=== PATIENT | female | born 1940 | race Caucasian/White ===

== ENCOUNTER → 2023-11-20 10:16 | Outpatient (REF) | payer MEDICARE, OTHER, SELFPAY | LOC: HWWDC 10:16 | PROVIDERS: ATTENDING PHYSICIAN Family Medicine | DX: Z12.31 Encounter for screening mammogram for malignant neoplasm of breast (principal) | CPT/HCPCS: 77063; 77067 ==

== ENCOUNTER → 2024-11-08 06:32 | Outpatient (REF) | payer MEDICARE, OTHER, SELFPAY ==
[2024-11-08 09:01] LABS: Urine Albumin 1+ (Neg - Trace); Urine Bilirubin Negative (Negative); Urine Character Clear (Clear); Urine Color Yellow; Urine Glucose Negative (Negative); Urine Ketone Negative (Negative); Urine Leukocyte 3+ (Negative); Urine Nitrite Negative (Negative); Urine Occult Blood 4+ (Negative); Urine Urobilinogen Negative (Neg - 1+)
[2024-11-08 09:07] LABS: Hematocrit 39.5 % (37.0-47.0); Hemoglobin 12.8 g/dL (12.0-16.0); Mean Corp Hgb Conc. 32.4 g/dL (33.0-37.0); Mean Corpuscular Hgb 31.3 pg (27.0-31.0); Mean Corpuscular Volume 96.6 fL (81.0-99.0); Mean Platelet Volume 9.9 fL (7.4-10.4); Platelet Count 282 10^3/uL (130-400); Red Blood Cell Count 4.09 10^6/uL (4.20-5.40); Red Cell Dist. Width 13.8 % (11.5-14.5); White Blood Cell Count 8.9 10^3/uL (4.8-10.8)
[2024-11-08 09:09] LABS: Urine Bacteria Few (Negative); Urine Red Blood Cell 0-2 /HPF (0-2); Urine Squamous Cell >30 /LPF (Few); Urine White Cell 30-40 /HPF (0-5)
[2024-11-08 09:34] LABS: Glycohemoglobin (HgbA1c) 5.2 % (4.0-5.6)
[2024-11-08 09:56] LABS: Absolute Neutrophils -Man Diff 2.1 10^3/uL (1.4-6.5); Anisocytosis Slight; Atypical Lymphocytes 8 %; Band Neutrophils 0 % (0-3); Eosinophils 3 % (0-6); Hypochromasia 1+; Lymphocytes 63 % (20-51); Monocytes 2 % (2-9); Normal RBC Morphology No; Platelets Checked Yes; Segmented Neutrophils 24 % (42-75)
[2024-11-08 09:57] LABS: Ovalocytes FEW; Polychromasia Slight; Total Cells Counted 100
[2024-11-08 10:17] LABS: ALT (SGPT) 16 U/L (0-35); AST (SGOT) 25 U/L (14-36); Albumin 3.9 g/dl (3.5-5.0); Alkaline Phosphatase 54 U/L (38-126); Blood Urea Nitrogen 17 mg/dl (7-17); Calcium 9.5 mg/dl (8.4-10.2); Carbon Dioxide 31 mmol/L (22-30); Chloride 101 mmol/L (98-107); Glucose 90 mg/dl (70-99); HDL Cholesterol 74 mg/dl; LDL Cholesterol, Calculated 140 mg/dl; Sodium 137 mmol/L (135-145); Total Cholesterol 232 mg/dl (50-199); Total Protein 6.2 g/dl (6.3-8.2); Triglyceride 91 mg/dl (10-149); Very Low Density Lipoprotein 18 mg/dl (0-30); eGFR > 60.00
[2024-11-08 10:33] LABS: Vitamin D, 25-OH*** 53.1 ng/mL (30-80)
[2024-11-08 10:47] LABS: TSH 3.14 uIU/ml (0.47-4.68)
[2024-11-08 11:07] LABS: Microalbumin, Random Urine 2.6 mg/dl (0.6-1.7)
== END ==
LOC: HWLAB 06:32
PROVIDERS: ATTENDING PHYSICIAN Internal Medicine Endocrinology, Diabetes & Metabolism; FAMILY PHYSICIAN Family Medicine
DX: E03.9 Hypothyroidism, unspecified (principal); I10 Essential (primary) hypertension; Z13.0 Encounter for screening for diseases of the blood and blood-forming organs and certain disorders involving the immune mechanism; E78.00 Pure hypercholesterolemia, unspecified; Z13.228 Encounter for screening for other metabolic disorders; M85.80 Other specified disorders of bone density and structure, unspecified site; E06.3 Autoimmune thyroiditis; D62 Acute posthemorrhagic anemia
CPT/HCPCS: 36415; 80053; 80061; 81003; 81015; 82043; 82306; 82570; 83036; 84439; 84443; 85025

== ENCOUNTER → 2024-12-01 08:18 | Outpatient (REF) | payer MEDICARE, OTHER, SELFPAY | LOC: HWWDC 08:18 | PROVIDERS: ATTENDING PHYSICIAN Family Medicine | DX: M85.80 Other specified disorders of bone density and structure, unspecified site (principal); Z12.31 Encounter for screening mammogram for malignant neoplasm of breast; M85.89 Other specified disorders of bone density and structure, multiple sites | CPT/HCPCS: 77063; 77067; 77080 ==

== ENCOUNTER 2025-01-06 08:21 | Day surgery (SDC) | payer MEDICARE, OTHER, SELFPAY ==
--- NOTE | 2025-01-06 11:43 | ITS.CL.CARDI ---
Installation Specialist - Cardioversion
Cardioversion
Procedure Report:
Date of Procedure: 01/06/25
Procedure: Cardioversion
Indication: Symptomatic atrial fibrillation
Performing Physician: Jose mariano MD
Technique: The patient was brought to the holding area. Signed informed consent was obtained. A time out was called and performed. The patient was anesthetized by the anesthesia service. Anticoagulation status was reviewed and appropriate. R2 pads
were placed anteriorly and posteriorly. A 200 J synchronized biphasic shock restored normal sinus rhythm without significant bradycardia. There were no complications.
Conclusion: Uncomplicated cardioversion from atrial fibrillation to sinus rhythm.
Recommendation: Routine post cardioversion care. Continue ocean transportation intermediary anticoagulation.
== END 2025-01-06 11:41 | disposition home or self-care (01) ==
LOC: CATH 08:21
PROVIDERS: ATTENDING PHYSICIAN Internal Medicine Cardiovascular Disease; FAMILY PHYSICIAN Family Medicine; OTHER PHYSICIAN Internal Medicine Cardiovascular Disease
DX: I48.91 Unspecified atrial fibrillation (principal); Z79.01 Long term (current) use of anticoagulants
CPT/HCPCS: 92960; 93005

== ENCOUNTER → 2025-01-09 13:48 | Outpatient (REF) | payer MEDICARE, OTHER, SELFPAY | LOC: HWRCS 13:48 | PROVIDERS: ATTENDING PHYSICIAN Internal Medicine Cardiovascular Disease; FAMILY PHYSICIAN Family Medicine | DX: I48.19 Other persistent atrial fibrillation (principal) | CPT/HCPCS: 93306 ==

== ENCOUNTER → 2025-03-16 07:50 | Outpatient (REF) | payer MEDICARE, OTHER, SELFPAY ==
[2025-03-16 09:53] LABS: Blood Urea Nitrogen 19 mg/dl (7-17); Calcium 9.5 mg/dl (8.4-10.2); Carbon Dioxide 29 mmol/L (22-30); Chloride 106 mmol/L (98-107); Glucose 87 mg/dl (70-99); Potassium 4.1 mmol/L (3.5-5.1); Sodium 140 mmol/L (135-145); Urine Albumin 1+ (Neg - Trace); Urine Bilirubin Negative (Negative); Urine Character Clear (Clear); Urine Color Yellow; Urine Glucose Negative (Negative); Urine Ketone Negative (Negative); Urine Leukocyte 3+ (Negative); Urine Nitrite Positive (Negative); Urine Occult Blood 4+ (Negative); Urine Specific Gravity 1.015 (<1.030); Urine Urobilinogen Negative (Neg - 1+); Urine pH 6.5 (5.0-9.0); eGFR > 60.00
[2025-03-16 10:29] LABS: Microalbumin, Random Urine 6.9 mg/dl (0.6-1.7)
[2025-03-16 10:36] LABS: Microalbumin/creatinine Ratio 76.8 mg/g
[2025-03-16 10:41] LABS: Urine Squamous Cell >30 /LPF (Few)
[2025-03-16 10:45] LABS: Urine Bacteria Many (Negative); Urine White Cell 50-60 /HPF (0-5)
== END ==
LOC: HWLAB 07:50
PROVIDERS: ATTENDING PHYSICIAN Family Medicine
DX: R80.9 Proteinuria, unspecified (principal)
CPT/HCPCS: 36415; 80048; 81003; 81015; 82043; 82570

== ENCOUNTER → 2025-03-20 07:13 | Outpatient (REF) | payer MEDICARE, OTHER, SELFPAY ==
[2025-03-20 10:02] LABS: Urine Albumin 2+ (Neg - Trace); Urine Bilirubin Negative (Negative); Urine Character Slightly Cloudy (Clear); Urine Color Yellow; Urine Glucose Negative (Negative); Urine Ketone Negative (Negative); Urine Leukocyte 3+ (Negative); Urine Nitrite Negative (Negative); Urine Occult Blood 4+ (Negative); Urine Urobilinogen Negative (Neg - 1+)
[2025-03-20 10:45] LABS: Urine Amorphous Seen
[2025-03-20 11:37] LABS: Urine Red Blood Cell 21-25 /HPF (0-2)
[2025-03-20 11:38] LABS: Urine White Cell >100 /HPF (0-5)
[2025-03-20 11:39] LABS: Urine Bacteria Many (Negative)
== END ==
LOC: HWLAB 07:13
PROVIDERS: ATTENDING PHYSICIAN Family Medicine
DX: R82.90 Unspecified abnormal findings in urine (principal)
CPT/HCPCS: 81003; 81015; 87077; 87086; 87186

== ENCOUNTER 2025-03-23 06:50 | Day surgery (SDC) | payer MEDICARE, OTHER, SELFPAY | END 2025-03-23 07:35 | LOC: CATH 06:50 | PROVIDERS: ATTENDING PHYSICIAN Internal Medicine Cardiovascular Disease; FAMILY PHYSICIAN Family Medicine; OTHER PHYSICIAN Internal Medicine Cardiovascular Disease | DX: I48.19 Other persistent atrial fibrillation (principal); Z53.09 Procedure and treatment not carried out because of other contraindication; I10 Essential (primary) hypertension; E78.00 Pure hypercholesterolemia, unspecified; E03.9 Hypothyroidism, unspecified; Z85.820 Personal history of malignant melanoma of skin; Z79.01 Long term (current) use of anticoagulants | CPT/HCPCS: 93005 ==

== ENCOUNTER → 2025-05-04 12:33 | Outpatient (REF) | payer MEDICARE, OTHER, SELFPAY ==
[2025-05-04 13:06] LABS: Hematocrit 36.6 % (37.0-47.0); Hemoglobin 12.3 g/dL (12.0-16.0); Mean Corp Hgb Conc. 33.6 g/dL (33.0-37.0); Mean Corpuscular Volume 95.1 fL (81.0-99.0); Nucleated Red Blood Cells % 0 %; Platelet Count 274 10^3/uL (130-400); Red Cell Dist. Width 14.0 % (11.5-14.5)
[2025-05-04 13:13] LABS: INR 1.33; PT 16.7 Sec (11.4-14.6)
[2025-05-04 13:48] LABS: ALT (SGPT) 17 U/L (0-35); AST (SGOT) 23 U/L (14-36); Albumin 4.0 g/dl (3.5-5.0); Alkaline Phosphatase 60 U/L (38-126); Blood Urea Nitrogen 22 mg/dl (7-17); Calcium 9.9 mg/dl (8.4-10.2); Carbon Dioxide 31 mmol/L (22-30); Chloride 106 mmol/L (98-107); Glucose 85 mg/dl (70-99); Magnesium 2.0 mg/dl (1.6-2.3); Potassium 4.6 mmol/L (3.5-5.1); Sodium 142 mmol/L (135-145); Total Protein 6.7 g/dl (6.3-8.2); eGFR > 60.00
== END ==
LOC: SDSPAT 12:33
PROVIDERS: ATTENDING PHYSICIAN Internal Medicine Cardiovascular Disease; FAMILY PHYSICIAN Family Medicine; OTHER PHYSICIAN Internal Medicine Cardiovascular Disease
DX: I48.0 Paroxysmal atrial fibrillation (principal)
CPT/HCPCS: 36415; 75572; 80053; 83735; 85025; 85610; 86850; 86900; 86901; 93005; Q9967

== ENCOUNTER → 2025-05-17 08:17 | Outpatient (REF) | payer MEDICARE, OTHER, SELFPAY | LOC: DHSLP 08:17 | PROVIDERS: ATTENDING PHYSICIAN Internal Medicine Cardiovascular Disease; FAMILY PHYSICIAN Family Medicine | DX: G47.33 Obstructive sleep apnea (adult) (pediatric) (principal) | CPT/HCPCS: 95800 ==

== ENCOUNTER 2025-06-02 05:52 | Day surgery (SDC) | payer MEDICARE, OTHER, SELFPAY ==
[2025-05-04 12:41] VITALS: BMI 25.6
[2025-06-02] VITALS (11 sets, daily range): BP systolic 135–184; BP diastolic 68–83; BMI 25.5
--- NOTE | 2025-06-02 07:12 | ITS.CL.ABL ---
Densitometrist - Ablation
Ablation
Procedure Report:
Primary Cytogenetics Laboratory Manager: Dr David Covington
Procedure Date: 06/02/2025
Patient History:
Patient is a pleasant 85-year-old female with a past medical history significant for hypertension, hypothyroidism, hypercholesterolemia, Graves' disease, osteoarthritis, a nonischemic cardiomyopathy, and symptomatic paroxysmal atrial fibrillation.
See H&P for complete details.
Indication:
Symptomatic paroxysmal atrial fibrillation
Nonischemic cardiomyopathy
Arrhythmia Specific History:
Prior Medical Therapies for Rate and Rhythm Control:
X Beta-noé
[ ] Calcium channel-noé
X Amiodarone
[ ] Dronederone
[ ] Sotalol
[ ] Flecainide
[ ] Dofetilide
X Options limited by bradycardia
[ ] Options limited by comorbid renal disease
Prior Procedural Therapies for AF/AFL:
X Cardioversion
[ ] Pulmonary Vein Isolation
[ ] Posterior Wall Isolation
[ ] Additional lines (Specify)
[ ] Surgical Marin-MAZE or PVI (Specify)
Procedure Performed:
X AF ablation procedure (41235) -- includes LA/CS pacing, trans-septal, 3D mapping, + ICE
[ ] +IV drug (33965)
[ ] +Other Arrhythmia (04676)
[ ] +Other AF Line/ablation (00629)
Risks and expected recovery has been explained in detail. Alternative options have been explored, and in a shared-decision making fashion we have decided that this was the most appropriate procedure.
Method
NPO status confirmed. Grounding pad applied. Defibrillator pads applied. Continuous surface ECG, pulse oximetry, and blood pressure were monitored. Procedure was performed under general anesthesia, with anesthesia services.
Both groins were clipped, prepped with Chloraprep, and draped in sterile fashion. Time out was called. Local anesthesia administered. The right femoral vein was accessed for catheter placement, using ultrasound guidance (images saved to record),
micro-puncture needle/wire, and modified seldinger technique. 3 sheaths were placed. The following catheters were used:
[ ] Tacticath SE (D/F Curve) ablation catheter
X Viewflex 9Fr ICE catheter
X Inquiry decapolar 6Fr diagnostic catheter
[ ] CRD Hex 6Fr
X FlexCath Contour 10 Fr with PulseSelect PFA Catheter
X Advisor HD Grid Mapping Catheter, SE
[ ] AcusLearning Hyperdrive AcuNav 8 Fr ICE catheter
[ ]Other: [ ]
Intracardiac ultrasound (ICE) was carefully advanced into the right atrium to guide sheath placement over a J-wire, catheter placement, guide trans-septal puncture, identify potential complications, identify anatomic structures and ensure proper
contact between ablation catheter and tissue. A trace basal LV pericardial effusion was noted at the initiation of procedure. This remained unchanged throughout procedure and at case completion.
Heparin was given prior to trans-septal puncture. Heparin was given to achieve and maintain a target ACT of 300-400 seconds throughout the procedure.
Trans-septal access was performed under ICE guidance. The trans-septal puncture was performed with a SafeSept wire through a Brockenbrough needle assembly through the steerable sheath. The wire was visualized as it entered the LSPV and system
advanced under ICE guidance and fluoroscopy into the LA. The Brockenbrough needle assembly, SafeSept wire and sheath dilator were removed under negative pressure. LA pressure was measured and recorded.
ICE and 3D mapping was performed to identify relevant cardiac structures. A careful 3D map was created to assess for regions of low-voltage and abnormal electrogram signals using HD grid mapping catheter and PulseSelect catheter. Additional mapping
was performed as outlined below.
Prior to ablation, glycopyrrolate was provided. PulseSelect catheter was advanced over J-wire to the ostium of each vein. Pulmonary vein isolation was performed with ostial and antral lesions in a circumferential manner. Contact was visualized via
EAM, ICE, fluoroscopy, and EGM signals.
Following completion of ablation lesions, a post-ablation voltage/activation map was performed in sinus rhythm. Entrance and exit block were confirmed for each vein.
Catheter and sheath were removed from the left atrium and post-ablation intracardiac echo evaluation was consistent with pre-ablation with no changes and no change to pericardial effusion and there is no left atrial thrombus or left ventricle
thrombus seen. Electrophysiology study was performed. Hemostasis was obtained with figure of 8 stitch for each groin and with manual pressure. Protamine was used for reversal.
Estimated Blood Loss
5 mL
Complications
None
Fluoroscopy: 4.9 minutes; 8.22 mGy; DAP 0.944
LA Pressure: Pre 11 mmHg, post 10 mmHg
Baseline Intervals:
Rhythm: SR
AR: 198 ms
QRS: 102 ms
QT: 550 ms
Post-Procedure Intervals:
AR: 174 ms
QRS: 99 ms
QT: 499 ms
QTc: 507 ms
A-A: 967 ms
R-R: 967 ms
AVWB: 610 ms
AVNERP: 650/470 ms
Recommendations
- Bedrest with straight-leg precautions as ordered
- Anticipate same day discharge if patient meeting clinical metrics
- Resume home medications as indicated
- Ok to resume anticoagulation tonight if patient and groin sites stable
- PPI daily for 30 days
- Plan for follow-up in office as scheduled
- Decrease amiodarone to 200 mg daily; plan to discontinue at 3 month visit
Olayinka Weiner, , FACC, [facility]
Clinical Cardiac Dairy Equipment Specialist
cc: Dr David Covington; Dr Florentino Sanchez
--- NOTE | 2025-06-02 15:58 | W.PN.UPDATE ---
Update Note
Progress Note Update
Pt seen post PFA. RIght groin site without ht/bleeding. OOB ambulating. Post EKG NST w/1st deg AVB, no acute changes. Resume eliquis tonight. Decrease amiodarone to 200mg daily, continue other meds as before. Followup at [facility] as scheduled. Home today
if groin site/tele stable.
[2025-06-08 22:19] LABS: ACT-LR - POC 294 Seconds (116-155)
[2025-06-08 22:19] LABS: ACT-LR - POC 160 Seconds (116-155)
[2025-06-08 22:19] LABS: ACT-LR - POC 398 Seconds (116-155)
[2025-06-08 22:19] LABS: ACT-LR - POC 350 Seconds (116-155)
[2025-06-08 22:19] LABS: ACT-LR - POC 331 Seconds (116-155)
== END 2025-06-02 15:00 | disposition home or self-care (01) ==
LOC: CATH 05:52
PROVIDERS: ATTENDING PHYSICIAN Internal Medicine Cardiovascular Disease; FAMILY PHYSICIAN Family Medicine; OTHER PHYSICIAN Internal Medicine Cardiovascular Disease
DX: I48.0 Paroxysmal atrial fibrillation (principal); I10 Essential (primary) hypertension; E03.9 Hypothyroidism, unspecified; Z86.006 Personal history of melanoma in-situ; M19.90 Unspecified osteoarthritis, unspecified site; M85.80 Other specified disorders of bone density and structure, unspecified site; I87.2 Venous insufficiency (chronic) (peripheral); Z79.01 Long term (current) use of anticoagulants; Z79.890 Hormone replacement therapy; I42.8 Other cardiomyopathies; E78.00 Pure hypercholesterolemia, unspecified; I44.0 Atrioventricular block, first degree; I34.0 Nonrheumatic mitral (valve) insufficiency; Z85.820 Personal history of malignant melanoma of skin; Z91.048 Other nonmedicinal substance allergy status; Z96.651 Presence of right artificial knee joint
CPT/HCPCS: C1733; C1766; C1732; C1894; C1769; 85347; 93005; 93656

== ENCOUNTER 2025-08-09 08:18 | Emergency (ER) | payer MEDICARE, OTHER, SELFPAY ==
[2025-08-09 08:19] VITALS: BP 184/90
[2025-08-09] MEDS: TYLENOL 1000 MG PO (09:07)
--- NOTE | 2025-08-09 10:04 | ED.GENMED ---
History of Present Illness
<Simona Snyder PA-C - Last Filed: 08/09/25 12:47>
General
Chief Complaint: Musculo-Skeletal Complaint
Time Seen by Provider: 08/09/25 08:24
History of Present Illness
History of Present Illness:
see MDM
Past History
<Simona Snyder PA-C - Last Filed: 08/09/25 12:47>
Past History
ED Past Medical History: HTN
ED Past Surgical History: Cholecystectomy, Orthopedic and Urological; Negative Cardiac
Social History
Tobacco: Non-smoker
Alcohol: None
Drug: None
Personal:
Living: alone
Employment: Employed
Family History
Family History: Other (Noncontributory)
Phy Exam
<Simona Snyder PA-C - Last Filed: 08/09/25 12:47>
Physical Exam
Physical Exam:
see MDM
Course
<Simona Snyder PA-C - Last Filed: 08/09/25 12:47>
Orders/Labs/Results
Orders:
Orders
08/09/25 08:45
Acetaminophen [Tylenol] 1,000 mg PO NOW STA
CR Shoulder, Trauma - Right Urgent
Comment:
Reason For Exam: R shoulder pain/fall, edema
Humerus, Right 2 Views [CR Humerus - Right Min 2 View*] Urgent
Comment:
Reason For Exam: R arm pain fall
08/09/25 09:49
Venous Doppler Upr Ext Right [US Periph Venous UPPER Ext RT] Urgent
Comment:
Reason For Exam: arm swelling
08/09/25 09:59
CT Upper Ext W/o Iv Cont Rt Urgent
Comment:
Reason For Exam: R shoulder hayes/swelling
08/09/25 11:38
Sling Right-Treatment ONCE
Vital Signs
Initial and Last Documented VS:
Initial Vital Signs
Temp Pulse Resp BP Pulse Ox
36.4 C 77 20 184/90 98
08/09/25 08:19 08/09/25 08:19 08/09/25 08:19 08/09/25 08:19 08/09/25 08:19
Last Documented Vital Signs
Temp Pulse Resp BP Pulse Ox
36.4 C 77 20 184/90 98
08/09/25 08:19 08/09/25 08:19 08/09/25 08:19 08/09/25 08:19 08/09/25 10:04
<Enrico Singer MD - Last Filed: 08/09/25 10:21>
Orders/Labs/Results
Orders:
Orders
08/09/25 08:45
Acetaminophen [Tylenol] 1,000 mg PO NOW STA
CR Shoulder, Trauma - Right Urgent
Comment:
Reason For Exam: R shoulder pain/fall, edema
Humerus, Right 2 Views [CR Humerus - Right Min 2 View*] Urgent
Comment:
Reason For Exam: R arm pain fall
08/09/25 09:49
Venous Doppler Upr Ext Right [US Periph Venous UPPER Ext RT] Urgent
Comment:
Reason For Exam: arm swelling
08/09/25 09:59
CT Upper Ext W/o Iv Cont Rt Urgent
Comment:
Reason For Exam: R shoulder hayes/swelling
08/09/25 11:38
Sling Right-Treatment ONCE
Vital Signs
Initial and Last Documented VS:
Initial Vital Signs
Temp Pulse Resp BP Pulse Ox
36.4 C 77 20 184/90 98
08/09/25 08:19 08/09/25 08:19 08/09/25 08:19 08/09/25 08:19 08/09/25 08:19
Last Documented Vital Signs
Temp Pulse Resp BP Pulse Ox
36.4 C 77 20 184/90 98
08/09/25 08:19 08/09/25 08:19 08/09/25 08:19 08/09/25 08:19 08/09/25 10:04
<Simona Snyder PA-C - Last Filed: 08/09/25 12:47>
MDM/Problems Addressed
Differential Diagnosis Includes:
see MDM
MDM/Problems Addressed:
Note:
CHIEF COMPLAINT(S)
Arm pain and swelling following a fall.
HISTORY OF PRESENT ILLNESS
The patient is an 85-year-old female h/o AF on [facility], [facility], [place] who presented with arm pain and swelling following a fall. The incident occurred on a [place] in [facility] 8 days ago while the patient was on a cruise. The patient reported tripping
over a cobblestone and falling on her left knee, and R arm, mostly R shoulder pain. She also sustained a bloody nose and experienced nausea and vomiting following the fall. She was evaluated at a hospital in [facility], where she was told the injury
looked like a fracture, but was not X-rayed.
pt has continued to have pain in the shoulder, specifically the scapula
she flew home yesterday.
she reports swelling began abuot 2 days ago and has been in the R lower arm though she has no pain there There were no reports of pain upon pressing the hand or wrist. The patient also mentioned swelling in the knee but without significant pain or
mobility issues. The patient�s ribs and lungs were assessed with no complaints noted. She is currently taking a blood thinner for a previously diagnosed condition.
PAST MEDICAL AND SURIGICAL HISTORY
The patient mentioned past knee issues that had been addressed by a specialist, though no specific timeline or details of previous surgeries were provided.
MEDICATIONS
The patient takes a blood thinner, specifically referred to as 'Eloquick.' She also mentioned having taken Tylenol for pain, without specifics about recent doses before the encounter.
PHYSICAL EXAM
TRAUMA EXAM:
VITAL SIGNS: Vital signs reviewed, cooperative
DISTRESS: No active disease
EYES: Pupils reactive, no orbital trauma
NOSE: No deformity or epistaxis
FACE AND SCALP: No scalp or facial trauma, external canals no blood
NECK: Supple nontender
BACK: Back nontender, pelvis stable to compression
RESPIRATORY: No distress, breath sounds normal, no tender chest wall
CARDIAC: No murmur, pulses equal and strong
ABDOMEN: Soft nontender bowel sounds normal
SKIN: Skin intact no bleeding, color normal
EXTREMITIES: Right shoulder scapular region slight tenderness, no AC joint tenderness, able to externally rotate, AB duct and extend the arm, no clicking, no dislocation, there is significant swelling from the upper arm down to the fingers that is
soft without compartment syndrome signs, normal pulse, perfused, slightly pink
NEUROLOGICAL: Alert, oriented, no motor deficits
PSYCH: Mood affect normal
- Nursing notes reviewed and vital signs reviewed.
PROBLEM LIST
Acute:
- Arm pain and swelling post-fall possibly involving a fracture.
- Bloody nose post-trauma.
- Knee swelling.
PLAN
- Obtain X-rays to assess for possible arm fracture.
- Consider MRI if no fracture is visible on X-ray to evaluate for rotator cuff injury or ligament issues, not immediately available in the emergency department.
- Ensure no blood clot presence due to patient�s recent travel and current swelling.
- Follow up with [facility] for any necessary MRI.
- Administer fluids for suspected dehydration.
- Discuss further pain management needs with the patient.
DIFFERENTIAL DIAGNOSIS
The Differential Diagnosis includes, in no particular order and is not limited to:
1. Fracture of the arm or shoulder.
2. Soft tissue injury or contusion.
3. Rotator cuff injury.
4. Blood clot (deep vein thrombosis).
5. Ligamentous injury.
6. Nerve injury causing referred pain.
7. Dehydration-related muscle cramps.
8. Tendinopathy.
9. Strain or sprain.
10. Hematoma.
85 y/o F
AF on eliquis
fall mehanical R shoulderp ain, scapular pain x 8 days since fall
[place]
has edema in the arm now
but pain is localized to R shoulder
still has preserved mobility of the shoulder
no painful breathing, numbness/tingling/weakness in the arm
moderate edema R forearm and wrist/hand without signifiant bony tenderness
R SHOULDER normla linspecation
mild tenderness R scapula
able to extend over her head
no step offs
xray indep reviewed
Mild widening of the AC joint suggesting a partial AC separation or sprain. However given her locality of her pain being in the scapula and discussed with ER attending as well as attending radiologist recommended a CT of this shoulder to evaluate
for scapular fracture. The CT shows some bruising but no fractures. It again shows the AC sprain. Patient will be placed in a sling and discharged home to follow-up with orthopedics. We also did ultrasound the arm to be sure that there was no
DVT.
US was neg
d/c home
sling
ortho
<Simona nSyder PA-C - Last Filed: 08/09/25 12:47>
*Pulse Oximetry
SaO2: 98
Oxygen Mode of Delivery: Room air
Patient hypoxic: no (98)
*Critical Care Note
Total Time (30-74mins, 75-104mins- exclusive of procedures): Not Applicable
ED Attending Note
<Simona Snyder PA-C - Last Filed: 08/09/25 12:47>
-
Portions of this chart may have been created with voice recognition software.� Occasional wrong word or��sound alike� substitutions may have occurred due to the inherent limitations of voice recognition software.
<Enrico Singer MD - Last Filed: 08/09/25 10:21>
ED Attending Note
Patient seen and examined by attending physician: Yes
I performed the substantive portion of visit, reviewed & personally made and approve the management plan that is documented in note by myself or SHO.: Yes
ED Attending Note:
Patient fell on a cruise last week. Landed on her left side and then hit her right upper back. Had no x-rays done at that time. Complaining of pain mostly right scapular area with swelling to the right arm and forearm. No distal numbness
tingling or weakness. She has no elbow wrist or forearm or hand pain. No chest pain shortness of breath or other complaints. She is anticoagulated on exam patient is nontoxic in no distress
Normocephalic atraumatic. Neck nontender. No tenderness over the clavicle or AC joint. Tenderness over the upper posterior scapula. Mild swelling of the right humerus. Moderate swelling to the right forearm. Does not appear cellulitic. More
ecchymosis base. Good distal pulses and color. Motor or sensory neurovascular intact.
Impression. X-rays are unremarkable. Swelling is likely secondary to blood. Not clinically cellulitic. Nothing to support compartment syndrome. Neurovascular intact. She is mostly tender over the right scapula. Will CT the scapula. Likely
this will be conservative management with sling and orthopedic follow-up.
Discharge Plan
Departure
Patient Disposition: Home (Routine Discharge)
Date of Disposition: 08/09/25
Time of Disposition: 11:37
Patient with high blood pressure during this ER visit?: No
Condition: Fair
Covid-19: Not Applicable
Discharge Problem:
Sprain of right shoulder
Instructions: Sprain (DC), How to Use a Shoulder Sling
Prescriptions:
No Action
levothyroxine 88 MCG tablet
88 mcg PO MOTUWETHFRSA
alendronate 70 mg Tablet
70 mg PO SA
ascorbic acid (vitamin C) [Vitamin C] 500 mg Tablet
1,000 mg PO DAILY
cholecalciferol (vitamin D3) [Vitamin D3] 25 mcg (1,000 unit) Tablet
25 mcg PO Q48H
levothyroxine 88 mcg Capsule
132 mcg PO STEPHENS
Eliquis 5 mg tablet
5 mg PO BID Qty: 60 0RF
cholecalciferol (vitamin D3) 50 mcg (2,000 unit) Tablet
50 mcg PO Q48H
cyanocobalamin (vitamin B-12) 1,000 mcg Capsule
1,000 mcg PO DAILY
oxybutynin chloride 5 mg Tablet
5 mg PO BID
Benefiber (wheat dextrin) 1 gram Tablet
2 g PO DAILY
Systane (PF) 0.4-0.3 % Dropperette
2 drp OPHTHALMIC (EYE) DAILY
pantoprazole [Protonix] 40 mg tablet,delayed release (DR/EC)
40 mg PO DAILY Qty: 30 0RF
amiodarone 200 mg Tablet
200 mg PO DAILY Qty: 0 0RF
Referrals:
Param Taveras MD [Active, Orthopedics] - Follow up in 1 week
UNKNOWN,NO INTERVIEW [Unknown Provider]
Activity Restrictions/Additional Instructions:
Your CAT scan does not show any obvious fracture, you do have is likely sprain of your AC joint and your shoulder and some bruising/hematoma in the soft tissue. It also looks like there is some fluid in the bursa and a joint effusion. You may end
up needing an MRI of the shoulder however this can be done as an outpatient after you follow-up with orthopedics. Use the shoulder sling to keep your arm immobilized, you may remove it every couple of hours and just stretch your shoulder gently.
Ice off-and-on. Tylenol 3 times a day. Return for any concerns, watch for the swelling in your lower arm, specifically return for significant or firm swelling, numbness tingling or weakness in the arms or fingers, color change or cool temperature
or any concerns
Interventions
Interventions:
*Risk Screen - Suicide Last Done: 08/09/25 08:19
*General Assessment Last Done: 08/09/25 08:19
*Neglect/Abuse Screening Last Done: 08/09/25 09:27
*ED COVID-19 Vaccine History Last Done: 08/09/25 09:27
*ED Influenza Vaccine History Last Done: 08/09/25 09:27
ED-Musculoskeletal Assessment Last Done: 08/09/25 09:27
Discharge Date and Time
Print Language: CUBAN
== END 2025-08-09 12:20 | disposition home or self-care (01) ==
LOC: EMR 08:18
PROVIDERS: EMERGENCY PHYSICIAN Emergency Medicine
DX: S43.401A Unspecified sprain of right shoulder joint, initial encounter (principal); W19.XXXA Unspecified fall, initial encounter; R22.31 Localized swelling, mass and lump, right upper limb; I10 Essential (primary) hypertension; I48.91 Unspecified atrial fibrillation; Z90.49 Acquired absence of other specified parts of digestive tract; Z79.01 Long term (current) use of anticoagulants
CPT/HCPCS: 99284; 73030; 73060; 73200; 93971